=== PATIENT | male | born 1990 | race Caucasian/White ===

== ENCOUNTER 2023-08-28 15:26 | Emergency (ER) | payer BC, SELFPAY ==
[2023-08-28 15:30] VITALS: BP 143/89; PULSE 64; RESP 20; TEMP 36.7; O2SAT 97; BMI 30.5
--- NOTE | 2023-08-28 15:30 | PC.NURSE ---
LACERATION CLEANED WITH HIBICLENSE AND STERILE WATER AT THIS TIME
--- NOTE | 2023-08-28 15:46 | EXP.UTC ---
Discharge Plan Disposition Patient Disposition: Home, Self-Care Condition: Good Prescriptions Prescriptions: New cephalexin 500 mg tablet 500 mg PO BID 7 Days Qty: 14 0RF Referrals Follow up/Referrals: Provider,Referral, MD [Primary Care Provider] - See instructions Activity Restrictions/Add. Instructions Additional Instructions/Restrictions: keep area dry wear splint for 3 days monitor for s/s of infection return is symptoms worsen or no improvement Clinical Impressions Clinical Impression: Laceration Instructions Patient Instructions: DI for Laceration Repair -- Finger, DI for Laceration Repair-Skin Closure Strips, DI for Laceration Repair-Skin Glue Discharge ED Provider: Tran ([facility])[place] [facility] [place] General Stated complaint: AO 08-28-23 cut right middle finger Mode of Arrival: Ambulatory Source of Information: Patient Limitations: No Limitations Time Seen by Provider: 08/28/23 15:49 Description of Symptoms (Recalled from Triage Doc. by RN): PATIENT C/O LACERATION TO RIGHT MIDDLE FINGER. HE STATES HE WAS WORKING WITH BATHROOM TILE AND CUT HIS FINGER ON A PIECE OF BROKEN TILE. PATIENT IS UP TO DATE ON TDAP HEENT Symptoms (Recalled from RN notes): No Resp Symptoms (Recalled from RN notes): No Skin Symptoms (Recalled from RN notes): Yes MS Symptoms (Recalled from RN notes): No Functional Status (Recalled from RN notes): WNL History of Present Illness Provider Complaint: 33 yr old male presents for laceration to rt middle finger. pt states he was tearing up tile and a broken tile cut his finger Related Data Previous Rx's Medication Instructions Recorded cephalexin 500 mg tablet 500 mg PO BID 7 days #14 tabs 08/28/23 Allergies Allergy/AdvReac Type Severity Reaction Status Date / Time No Known Allergies Allergy Verified 08/28/23 15:39 Worker's Comp Is this a Worker's Comp case?: No [facility] Disclaimer: The information contained in this section may have been updated after the patient was seen, as this information can be updated by other users. Social History (Reviewed 08/28/23 @ 15:53 by Catherine Mayfield ([facility]), [employer]) Smoking Status: Smoker, status unknown alcohol intake: never current occupational status: employed Travel in the last 8 weeks: None ROS Obtained: Yes All systems reviewed & no additional complaints except as documented Constitutional Constitutional: Reports system reviewed and no additional complaints, except as documented Eyes Eyes: Reports system reviewed and no additional complaints, except as documented ENT Ears, Nose, Mouth, and Throat: Reports system reviewed and no additional complaints, except as documented Cardiovascular Cardiovascular: Reports system reviewed and no additional complaints, except as documented Respiratory Respiratory: Reports system reviewed and no additional complaints, except as documented Gastrointestinal Gastrointestingal: Reports system reviewed and no additional complaints, except as documented Integumentary/Breasts Skin/Breast: Reports system reviewed and no additional complaints, except as documented, Reports as per HPI and Reports other Neurologic Neurologic: Reports system reviewed and no additional complaints, except as documented Endocrine Endocrine: Reports system reviewed and no additional complaints, except as documented Physical Exam General General appearance: alert and in no apparent distress ENT ENT exam: Present normal exam Respiratory Respiratory exam: Present normal lung sounds bilaterally Cardiovascular Cardiovascular exam: Present regular rate and normal rhythm Expanded Upper Extremity Exam Right: Hand L/R back image: 1. superficial skin flap Neurological Exam Neurological exam: Present alert and oriented X3 Skin Skin exam: Present warm and other Expanded Skin Exam Type of lesion: Present laceration Distribution: other Medical Decision Making Medical Records Medical records reviewed: Yes I reviewed the patient's medical records. Roberto Inquiry Pt receiving controlled substance: No Roberto was queried for this patient: No Vital Signs: 08/28/23 15:30 Temperature 98.1 F Temperature Source Oral Pulse Rate [Left Brachial] 64 Respiratory Rate 20 Blood Pressure [Left Arm] 143/89 H Blood Pressure Mean [Left Arm] 107 Blood Pressure Source [Left Arm] Automatic Cuff Blood Pressure Position [Left Arm] Sitting 02 Sat by Pulse Oximetry 97 Oxygen Delivery Method Room Air Procedures Laceration Laceration 1: Site: finger Side (If applicable): right Size (cm): 0.5 Description: flap Pre-repair: deep structures intact Skin layer closed with: Dermabond and other (steri strips)
[2023-08-28 15:58] VITALS: BP 143/89; PULSE 64; RESP 20; TEMP 36.7; O2SAT 97
== END 2023-08-28 16:02 | disposition home or self-care (01) ==
PROVIDERS: Emergency Provider Nurse Practitioner Family
DX: S61.202A Unspecified open wound of right middle finger without damage to nail, initial encounter (principal); W26.8XXA Contact with other sharp object(s), not elsewhere classified, initial encounter
CPT/HCPCS: 12001; 99204; 99213; G0463